=== PATIENT | male | born 1985 | race Caucasian/White ===

== ENCOUNTER 2022-11-26 17:41 | Emergency (ER) | payer BC, OTHER ==
[2022-11-26 17:55] VITALS: BP 126/75; PULSE 101; RESP 18; TEMP 98.2; BMI 22.3
[2022-11-26 19:52] LABS: BASO % 0.7 % (0-2.0); EOS % 0.7 % (0-4.5); HEMATOCRIT 44.3 % (35.4-49); HEMOGLOBIN 14.5 GM/dL (11.7-16.9); LYMPH % 29.5 % (8-40); MCH 29.5 pg (25.7-33.7); MCHC 32.8 g/dl (32.0-35.9); MEAN CELL VOLUME 89.8 fl (80-96); MEAN PLT VOLUME 6.8 fl (7.5-11.1); MONO % 8.2 % (3.8-10.2); NEUT % 60.9 % (42.8-82.8); PLATELET COUNT 337 10^3/uL (134-434); RBC 4.93 M/mm3 (4.00-5.60); RDW 13.5 % (11.9-15.9); WHITE BLOOD COUNT 9.6 K/mm3 (4.0-10.0)
[2022-11-26 20:21] LABS: CHLORIDE 105 mmol/L (98-107); POTASSIUM 4.2 mmol/L (3.5-5.1); SODIUM 141 mmol/L (136-145)
[2022-11-26 20:25] LABS: ALBUMIN 4.1 g/dl (3.4-5.0); ANION GAP 6 MMOL/L (8-16); BLOOD UREA NITROGEN 12.7 mg/dL (7-18); CO2 30 mmol/L (21-32); GLUCOSE,RANDOM 91 mg/dL (74-106)
[2022-11-26 20:28] LABS: CREATININE 1.1 mg/dL (0.55-1.3); SGOT/AST 14 U/L (15-37); SGPT/ALT 39 U/L (13-61)
[2022-11-26 20:29] LABS: BILIRUBIN,TOTAL 0.5 mg/dL (0.2-1); TOT PROT 7.4 g/dl (6.4-8.2)
[2022-11-26 20:31] LABS: ALK PHOS 61 U/L (45-117)
[2022-11-26 21:31] LABS: URIC ACID 4.2 mg/dL (2.6-7.2)
== END 2022-11-26 22:12 | disposition home or self-care (01) ==
LOC: JERFT 17:41
DX: R22.41 Localized swelling, mass and lump, right lower limb (principal); M13.171 Monoarthritis, not elsewhere classified, right ankle and foot
CPT/HCPCS: 36415; 73660-TC-FY; 80053; 84550; 85025; 86140

== ENCOUNTER 2023-10-04 11:11 | Emergency (ER) | payer OTHER, BC ==
[2023-10-04 11:19] VITALS: BP 111/73; PULSE 90; RESP 18; TEMP 97.9; BMI 23.7
[2023-10-04] MEDS ORDERED: KETOROLAC TROMETHAMINE 30 MG/1 ML VIAL ONE (12:02)
[2023-10-04] MEDS ORDERED: LIDOCAINE 4% PATCH TP ONE (12:02)
[2023-10-04] MEDS: KETOROLAC TROMETHAMINE 30 MG/1 ML VIAL IM ONE (12:08)
[2023-10-04] MEDS: LIDOCAINE 4% PATCH TP ONE (12:08)
[2023-10-04] MEDS ORDERED: LIDOCAINE PATCH REMOVAL MC ONE (22:00)
== END 2023-10-04 13:00 | disposition home or self-care (01) ==
LOC: JERFT 11:11
PROC: 3E0133Z Introduction of Anti-inflammatory into Subcutaneous Tissue, Percutaneous Approach (ICD-10-PCS; principal; 2023-10-04)
DX: M54.50 Low back pain, unspecified (principal); X50.0XXA Overexertion from strenuous movement or load, initial encounter
CPT/HCPCS: 72100-TC-FY; 99284-25